=== PATIENT | male | born 1960 | race Two or more races ===

== ENCOUNTER 2023-02-23 18:07 | Emergency (ER) | payer OTHER ==
[~2023-02-23] VITALS: Ht 185.4 cm; Wt 83.5 kg
[2023-02-23] MEDS ORDERED: ATORVASTATIN CA20 MG PO (18:52)
[2023-02-23] MEDS ORDERED: LOSARTAN POTAS100 MG PO (18:52)
== END 2023-02-23 22:37 | disposition home or self-care (01) ==
LOC: ER 18:07
DX: R00.2 Palpitations (principal)